=== PATIENT | male | born 1985 | race Caucasian/White ===

== ENCOUNTER 2016-09-02 13:09 | Emergency (ER) | payer MEDICARE, OTHER ==
--- NOTE | 2016-09-02 13:26 | ED Physician Documentation ---
General Adult - HISTORIAN Historian: patient - HPI Chief Complaint: General Adult Timing: still present Further Comments: yes (Patient has had a suprapubic catheter placed several years ago. Had catheter changed last week. Since that time has been having some difficutlies where it does not seem to be drainaing as well. Seems to be getting plugged up at times. Has a lot of sediment in the tubing. Has felt that his blladder has been distened and has been urinating through his penis at times. Feels like he might have a UTI at this time. Has had some fever, no chills noted.) - ROS CONST: fever, chills GI/: abdominal pain - PAST HX Past History: other (cervical fracture with spinal cord injury) Other History: none Surgeries/Procedures: other (Cervical fusion, suprapubic cath plaement) Allergies/Adverse Reactions: Allergies Allergy/AdvReac Type Severity Reaction Status Date / Time No Known Allergies Allergy Verified 09/02/16 13:24 Home Medications: Ambulatory Orders Medication Instructions Recorded Ciprofloxacin HCl [Cipro] 250 mg PO BID #10 tablet 09/02/16 Metformin HCl [Glucophage] 500 mg PO [id number] 09/02/16 Pantoprazole Sodium [Protonix] 40 mg PO 0700 09/02/16 - SOCIAL HX Smoking History: greater than 1 pack/day Alcohol Use: none Drug Use: none - FAMILY HX Family History: Yes (grandmother with DM) - VITAL SIGNS Vital Signs: Vital Signs Temp Pulse Resp BP Pulse Ox 124/76 12/13/15 23:19 - REVIEWED ASSESSMENTS Nursing Assessment Reviewed: Yes Vitals Reviewed: Yes Progress - Progress Progress: Patient had suprapubic cath and bag changed. 18French cath was placed and 8cc water use to inflate bulb. Good return to urine, slightly blood at first. General Adult Physical Exam - PHYSICAL EXAM GENERAL APPEARANCE: no distress NECK: normal inspection RESPIRATORY: no resp distress, chest non-tender, breath sounds normal. No: wheezes, rales, rhonchi CVS: reg rate & rhythm, heart sounds normal ABDOMEN: soft, no organomegaly, normal bowel sounds, no distension, tenderness ( mild suprapubic tenderness), other (some purluent drainage from the suprapubi site) BACK: normal inspection SKIN: warm/dry, normal color NEURO: oriented X3, CN's nml as tested, cognition normal Discharge Clincal Impression: UTI (urinary tract infection) Qualifiers: Urinary tract infection type: acute cystitis Hematuria presence: without hematuria Qualified Code(s): N30.00 - Acute cystitis without hematuria Prescriptions: Ciprofloxacin HCl [Cipro] 250 mg PO BID #10 tablet Referrals: Gino Matute MD [Primary Care Provider] - 2 Days Additional Instructions: Drink a lot of fluids, take cipro as directed twice a day for 5 days. Watch for any developed of fever, chills. If you have any further problems to return tot he clinic or to the ED. Home Medications: Ambulatory Orders Ciprofloxacin HCl [Cipro] 250 mg PO BID #10 tablet 09/02/16 Metformin HCl [Glucophage] 500 mg PO [id number] 09/02/16 Pantoprazole Sodium [Protonix] 40 mg PO 0700 09/02/16 Condition: Stable Disposition: 01 HOME, SELF-CARE Decision to Admit: NO Date of Decison to Admit: 09/02/16 Decision Time: 14:17
[2016-09-02 13:33] VITALS: BP 98/55
[2016-09-02] MEDS ORDERED: KETOROLAC TROMETHAMINE 60 MG/2 ML VIAL IM ONE (14:12)
[2016-09-03 05:30] LABS: APPEARANCE,URINE CLOUDY (CLEAR); COLOR,URINE RED (YELLOW); OCCULT BLOOD,URINE 3+ (NEGATIVE)
== END 2016-09-02 14:35 | disposition home or self-care (01) ==
LOC: ED 13:09
DX: N30.00 Acute cystitis without hematuria (principal)
CPT/HCPCS: 51702; 81002; 87086; J1885; 87186; 99283

== ENCOUNTER 2016-11-25 16:05 | Emergency (ER) | payer MEDICARE, OTHER ==
[2016-11-25] MEDS ORDERED: PHENAZOPYRIDINE HCL 200 MG TABLET PO ONE (16:53)
--- NOTE | 2016-11-25 17:19 | ED Physician Documentation ---
Male Genitourinary Problems - HISTORIAN Historian: patient - HPI Chief Complaint: Male Urogenital Problems Onset: days ago Duration: continues in ED Severity: moderate Further Comments: yes (31 year old male patient presents with supra pubic catheter leaking, bladder spasms and dysuria. Patient reports problems since his supra pubic was changed on .) - Associated Symptoms Testicular Pain: none Testicular Swelling: none Flank Pain: none Abdominal Pain: none - Sexual History Sexual History: non-contributory - ROS CONST: none GI/: denies: nausea, vomiting MS/SKIN/LYMPH: none CVS/RESP: none EYES/ENT: none - PAST HX Past History: other (supra pubic catheter; incomplete quad - C6 fracture, GERD) Allergies/Adverse Reactions: Allergies Allergy/AdvReac Type Severity Reaction Status Date / Time No Known Allergies Allergy Verified 09/02/16 13:24 Home Medications: Ambulatory Orders Medication Instructions Recorded Ciprofloxacin HCl [Cipro] 250 mg PO BID #10 tablet 09/02/16 Metformin HCl [Glucophage] 500 mg PO [id number] 09/02/16 Pantoprazole Sodium [Protonix] 40 mg PO 0700 09/02/16 - SOCIAL HX Smoking History: non-smoker - FAMILY HX Family History: denies: none - VITAL SIGNS Vital Signs: Vital Signs Temp Pulse Resp BP Pulse Ox 98.7 F 65 20 91/51 94 11/25/16 16:20 11/25/16 17:38 11/25/16 17:38 11/25/16 17:38 11/25/16 17:38 - REVIEWED ASSESSMENTS Nursing Assessment Reviewed: Yes Vitals Reviewed: Yes Progress - Progress Progress: only 3ml of water in supra pubic catheter balloon. Removed, new catheter placed and UA obtained. Reviewed old charts - history of hematuria. Patient complains of bladder spasms - pyridium po given. Cipro started in ER. ED Results Lab/Radiology - Orders Orders: ED Orders Category Date Time Status UA W/MICRO IF INDICATED Stat Lab 11/25/16 16:52 Ordered Ciprofloxacin HCl [Cipro] Med 11/25/16 17:27 Discontinued 500 mg PO NOW ONE Phenazopyridine HCl [Pyridium] Med 11/25/16 16:53 Discontinued 200 mg PO NOW ONE Male Genitourinary Problems - EXAM General Appearance: mild distress Abdomen: no organomegaly, tenderness (OVER BLADDER AREA), other (supra pubic catheter) EENT: eye inspection normal, ROOPA Respiratory: no resp distress, chest non-tender, breath sounds normal CVS: reg rate & rhythm, heart sounds normal, equal pulses, no murmur, no gallop , PMI nml, no JVD, no friction rub, 24 Neuro/Psych: oriented X3, sensation nml (Incomplete quad; wheelchair bound), mood/affect nml Skin: normal color, warm/dry, NR, INT, PAL, DR Discharge Clincal Impression: UTI (urinary tract infection) Qualifiers: Urinary tract infection type: catheter-associated UTI Indwelling urinary catheter type: unspecified Encounter type: initial encounter Qualified Code(s): T83.511A - Infection and inflammatory reaction due to indwelling urethral catheter, initial encounter; N39.0 - Urinary tract infection, site not specified Suprapubic catheter dysfunction Qualifiers: Encounter type: initial encounter Qualified Code(s): T83.010A - Breakdown ( mechanical) of cystostomy catheter, initial encounter Referrals: Gino Matute MD [Primary Care Provider] - 2 Days Home Medications: Ambulatory Orders Ciprofloxacin HCl [Cipro] 250 mg PO BID #10 tablet 09/02/16 Metformin HCl [Glucophage] 500 mg PO [id number] 09/02/16 Pantoprazole Sodium [Protonix] 40 mg PO 0700 09/02/16 Condition: Stable Disposition: 01 HOME, SELF-CARE Decision to Admit: NO Decision Time: 17:19
[2016-11-25] MEDS ORDERED: CIPROFLOXACIN HCL 500 MG TABLET PO ONE (17:27)
[2016-11-25 17:40] VITALS: BP 91/51
== END 2016-11-25 17:38 | disposition home or self-care (01) ==
LOC: ED 16:05 → EDSTATUS 16:06 → ED 17:38
DX: T83.010A Breakdown (mechanical) of cystostomy catheter, initial encounter (principal); N39.0 Urinary tract infection, site not specified; X58.XXXA Exposure to other specified factors, initial encounter; Y93.9 Activity, unspecified; Y99.9 Unspecified external cause status

== ENCOUNTER 2017-02-19 14:28 | Emergency (ER) | payer MEDICARE, OTHER ==
[2017-02-19] MEDS ORDERED: PHENAZOPYRIDINE HCL 200 MG TABLET PO ONE (15:11)
[2017-02-19] MEDS ORDERED: fentaNYL CITRATE/PF 100 MCG/ 2ML AMP IVP ONE (15:28)
[2017-02-19 15:47] LABS: BASOPHILS % 1.1 (0.0-1.5); EOSINOPHILS % 2.7 % (0.0-6.8); MEAN CORPUSCULAR HEMOGLOBIN 31.1 pg (28.0-34.0); MEAN CORPUSCULAR VOLUME 90.2 fl (80.0-100.0); MONOCYTES % 5.8 % (0.0-11.0); NEUTROPHILS # 4.7 # k/uL (1.4-7.7)
--- NOTE | 2017-02-19 15:53 | ED Physician Documentation ---
Male Genitourinary Problems - HISTORIAN Historian: patient - HPI Stated Complaint: bladder spasms,dysuria Chief Complaint: Male Genitourinary Problems Onset: days ago (Sunday) Duration: continues in ED Further Comments: yes (31 year old male presents with complaints of supra pubic catheter discomfort and "blood in tubing". Patient reports having catheter changed in his primary care doctor's office on Sunday, states he has been uncomfortable ever since with multiple episodes of bloody urine. Old records reviewed, patient seen in 11/2016 with suprapubic infection after catheter change.) - Associated Symptoms Problems Urinating: blood in urine, discomfort w/ urination, pain w/ urination Testicular Pain: none Testicular Swelling: none Abdominal Pain: none - Sexual History Sexual History: non-contributory - ROS CONST: none GI/: problems urinating (supra pubic catheter) MS/SKIN/LYMPH: none CVS/RESP: none EYES/ENT: none - PAST HX Past History: other (Supra pubic catheter, hx trach, Incomplete Quad 2011 - C6 fracture, GERD) Cardiac Disease: none Allergies/Adverse Reactions: Allergies Allergy/AdvReac Type Severity Reaction Status Date / Time No Known Allergies Allergy Verified 02/19/17 14:58 Home Medications: Ambulatory Orders Medication Instructions Recorded Metformin HCl [Glucophage] 500 mg PO [id number] 09/02/16 Pantoprazole Sodium [Protonix] 40 mg PO 0700 09/02/16 - SOCIAL HX Smoking History: cigarettes - FAMILY HX Family History: denies: none - VITAL SIGNS Vital Signs: Vital Signs Temp Pulse Resp BP Pulse Ox 98.2 F 83 16 93/45 95 02/19/17 14:59 02/19/17 14:59 02/19/17 14:59 02/19/17 14:59 02/19/17 14:59 - REVIEWED ASSESSMENTS Nursing Assessment Reviewed: Yes Vitals Reviewed: Yes Progress - Progress Progress: RN replaced supra pubic catheter, patient now with beau hematuria. Irrigated with 100cc; multiple clots passed through penis with beau hematuria. Patient c/o pain, IV established and fentanyl IV given. Irrigation comes out penis, patient states it feels like the catheter is in his penis. Repositioned and re-irrigated with 50cc. Draining out penis. Continued beau hematuria. Fentanyl IV given for pain. Recommended evaluation by urologist. Call to [facility], patient accepted by Dr Ashraf - will evaluate in ER. Catheter now draining, pink urine. Patient now reports in 2012, urethra damage with changing of supra pubic catheter by Home health nurse. ED Results Lab/Radiology - Orders Orders: ED Orders Category Date Time Status Bladder Irrigation .PRN Care 02/19/17 15:11 Active Remove IV/Saline Lock 1T Care 02/19/17 15:28 Active CBC/PLATELET/DIFF Stat Lab 02/19/17 15:40 Received CMP Stat Lab 02/19/17 15:40 Received PTT Stat Lab 02/19/17 15:40 Received UA W/MICRO IF INDICATED Stat Lab 02/19/17 15:05 Ordered Phenazopyridine HCl [Pyridium] Med 02/19/17 15:11 Discontinued 200 mg PO NOW ONE fentaNYL CITRATE/PF [Duragesic] Med 02/19/17 15:28 Discontinued 50 mcg IVP NOW ONE Male Genitourinary Problems - EXAM General Appearance: moderate distress Abdomen: non-tender, no organomegaly, tenderness (supra pubic area), other ( indwelling supra pubic catheter with white foul drainage in hall tubing) Genitals: nml inspection, testicles nml palp., circumcised. No: testicular tenderness, epididymal tenderness, scrotal swelling, hernia mass Respiratory: no resp distress, chest non-tender, breath sounds normal CVS: reg rate & rhythm, heart sounds normal, equal pulses, no murmur, no gallop , PMI nml, no JVD, no friction rub, 24 Extremities: normal range of motion, non-tender, normal inspection, no pedal edema, no calf tenderness, normal capillary refill, pelvis stable Neuro/Psych: oriented X3, CN's nml as tested, motor nml, sensation nml, mood/ affect nml Skin: normal color, warm/dry, NR, INT, PAL, DR Discharge Clincal Impression: Gross hematuria Suprapubic catheter dysfunction Qualifiers: Encounter type: initial encounter Qualified Code(s): T83.010A - Breakdown ( mechanical) of cystostomy catheter, initial encounter Referrals: Gino Matute MD [Primary Care Provider] - 2 Days Home Medications: Ambulatory Orders Metformin HCl [Glucophage] 500 mg PO [id number] 09/02/16 Pantoprazole Sodium [Protonix] 40 mg PO 0700 09/02/16 Condition: Stable Disposition: 02 XFER SHT-TRM HOSP Decision to Admit: NO Decision Time: 16:02
[2017-02-19 16:03] LABS: eGFR (African) > 60; eGFR (Non-African) > 60
[2017-02-19 16:34] VITALS: BP 96/43
== END 2017-02-19 16:20 | disposition short-term general hospital (02) ==
LOC: ED 14:28
DX: R31.0 Gross hematuria (principal); T83.010A Breakdown (mechanical) of cystostomy catheter, initial encounter; X58.XXXA Exposure to other specified factors, initial encounter; Y93.9 Activity, unspecified; Y99.9 Unspecified external cause status
CPT/HCPCS: 80053; 85025; 85730; J3010; 96374; 99284; S1016

== ENCOUNTER 2017-04-19 15:32 | Emergency (ER) | payer MEDICARE, OTHER ==
--- NOTE | 2017-04-19 15:46 | ED Physician Documentation ---
General Adult - HISTORIAN Historian: patient - VITAL SIGNS Vital Signs: Vital Signs Temp Pulse Resp BP Pulse Ox 96/43 02/19/17 16:20 <Malena Cruz - Last Filed: 04/19/17 16:00> - HPI Stated Complaint: leaking catheter Chief Complaint: General Adult Additional Information: suprapubic catheter, indwelling leaking Timing: still present Severity: moderate Modifying Factors: chronic indwelling catheter from [place] Context: dove into snow and sustained neck fx Further Comments: no - ROS CONST: fever (mild) EYES/ENT: none CVS/RESP: none GI/: abdominal pain (bladder pain) MS/SKIN/LYMPH: none NEURO/PSYCH: denies: headache, fainting, dizziness, tingling - PAST HX Past History: other (cervical fracture, gerd, dm) Other History: none Surgeries/Procedures: other (suprapubic catheter placement) Immunizations: referred to PCP - SOCIAL HX Smoking History: cigarettes Alcohol Use: none Drug Use: none - FAMILY HX Family History: No - VITAL SIGNS Vital Signs: Vital Signs Temp Pulse Resp BP Pulse Ox 99.5 F 79 20 74/33 91 L 04/19/17 15:44 04/19/17 15:44 04/19/17 15:44 04/19/17 15:44 04/19/17 15:44 - REVIEWED ASSESSMENTS Nursing Assessment Reviewed: Yes Vitals Reviewed: Yes <Ananda Martinez - Last Filed: 04/19/17 18:24> - PAST HX Allergies/Adverse Reactions: Allergies Allergy/AdvReac Type Severity Reaction Status Date / Time No Known Allergies Allergy Verified 04/19/17 15:56 Home Medications: Ambulatory Orders Medication Instructions Recorded Metformin HCl [Glucophage] 500 mg PO [id number] 09/02/16 Pantoprazole Sodium [Protonix] 40 mg PO 0700 09/02/16 Progress - Results/Orders Results/Orders: cbc, cmp, ua ordered - Progress Progress: pt. stable entire time in er, given 1 liter ns, 30 mg toradol ivp and vicodin 10 /325 mg p.o. x 1 in er <Ananda Martinez - Last Filed: 04/19/17 18:24> Critical Care Note - Critical Care Note Total Time (mins): 0 <Ananda Martinez - Last Filed: 04/19/17 18:24> ED Results Lab/Radiology - Lab Results Lab Results: Lab Results 04/19/17 04/19/17 04/19/17 16:30 16:30 16:01 WBC 7.30 K/ul K/ul (4.00-12.00) RBC 5.29 M/ul H M/ul (3.90-5.20) Hgb 16.2 g/dL g/dL (12.0-18.0) Hct 47.8 % % (37.0-53.0) MCV 90.5 fl fl (80.0-100.0) MCH 30.6 pg pg (28.0-34.0) MCHC 33.8 g/dL g/dL (30.0-36.0) RDW 14.7 % H % (11.3-14.3) Plt Count 188 K/mm3 K/mm3 (130-400) Neut % (Auto) 51.5 % % (39.0-79.0) Lymph % (Auto) 38.1 % % (16.0-50.0) Carter % (Auto) 3.7 % % (0.0-11.0) Eos % (Auto) 2.4 % % (0.0-6.8) Baso % (Auto) 0.7 (0.0-1.5) Neut # (Auto) 3.8 # k/uL # k/uL (1.4-7.7) Lymph # (Auto) 2.8 # k/uL # k/uL (0.6-4.0) Carter # (Auto) 0.3 # k/uL # k/uL (0.0-0.9) Eos # (Auto) 0.2 # k/uL # k/uL (0.0-0.6) Baso # (Auto) 0.0 # k/uL # k/uL (0.0-0.5) Reactive Lymphs % 3.7 % % (0.0-5.0) Reactive Lymphs # 0.3 # k/uL # k/uL (0.0-0.8) Sodium 136 mmol/L L mmol/L (137-145) Potassium 4.0 mmol/L mmol/L (3.5-5.1) Chloride 104 mmol/L mmol/L (98-107) Carbon Dioxide 24 mmol/L mmol/L (22-30) BUN 17 mg/dL mg/dL (9-20) Creatinine 0.70 mg/dL mg/dL (0.66-1.25) Estimated Creat Clear 163 Est GFR ( Amer) > 60 (60 - ) Est GFR (Non-Af Amer) > 60 (60 - ) Glucose 89 mg/dL mg/dL (74-106) Calcium 8.7 mg/dL mg/dL (8.4-10.2) Total Bilirubin 0.5 mg/dL mg/dL (0.2-1.3) AST 24 U/L U/L (15-46) ALT 31 U/L U/L (13-69) Alkaline Phosphatase 74 U/L U/L (38-126) Total Protein 7.2 g/dL g/dL (6.3-8.2) Albumin 3.8 g/dL g/dL (3.5-5.0) Urine Color Yellow (YELLOW) Urine Appearance Cloudy (CLEAR) Urine pH 6.5 (5.0 - 8.0) Ur Specific [place] 1.025 (1.010-1.030) Urine Protein 2+ mg/dL H mg/dL (NEGATIVE) Urine Ketones Negative mg/dL mg/dL (NEGATIVE) Urine Occult Blood 2+ H (NEGATIVE) Urine Nitrite Positive H (NEGATIVE) Urine Bilirubin 1+ H (NEGATIVE) Urine Urobilinogen 0.2 Eu Eu (0.2-1.0) Ur Leukocyte Esterase 1+ H (NEGATIVE) Urine Glucose Negative mg/dL mg/dL (NEGATIVE) - Radiology Radiology Impressions: none ordered - Orders Orders: ED Orders Category Date Time Status German [Urinary catheterization] 1T Care 04/19/17 17:[address] IV Lock 1T Care 04/19/17 16:00 Active BLOOD CULTURE Urgent Lab 04/19/17 Ordered CBC/PLATELET/DIFF Routine Lab 04/19/17 16:30 Completed CMP [CMP] Routine Lab 04/19/17 16:30 Completed UA W/MICRO IF INDICATED Routine Lab 04/19/17 16:01 Completed URINE CULTURE Routine Lab 04/19/17 16:01 Received 0.9 % Sodium Chloride [Normal Saline] 1,000 ml Med 04/19/17 16:01 Discontinued IV Q1H HYDROcodone /APAP 10/325 [[place] 10/325] Med 04/19/17 17:25 Discontinued 1 each PO NOW ONE Ketorolac Tromethamine [Toradol] Med 04/19/17 16:35 Discontinued 30 mg IVP NOW ONE Sulfamethoxazole/Trimethoprim [Bactrim Ds] Med 04/19/17 17:53 Discontinued 1 each PO .STK-MED ONE Sulfamethoxazole/Trimethoprim [Bactrim Ds] Med 04/19/17 17:52 Once 1 each PO NOW ONE <Ananda Martinez - Last Filed: 04/19/17 18:24> General Adult Physical Exam - PHYSICAL EXAM GENERAL APPEARANCE: mild distress EENT: eye inspection normal, ENT inspection normal, pharynx normal, no signs of dehydration, ROOPA, no nystagmus, TM's nml NECK: normal inspection, thyroid normal, supple RESPIRATORY: no resp distress, chest non-tender, breath sounds normal CVS: reg rate & rhythm, heart sounds normal, equal pulses, no murmur, no gallop , PMI nml, no JVD ABDOMEN: soft, normal bowel sounds, tenderness (suprapubic area) BACK: normal inspection, no CVA tenderness SKIN: warm/dry, normal color EXTREMITIES: non-tender, normal range of motion, no evidence of injury, no edema NEURO: oriented X3, CN's nml as tested, motor nml, sensation nml, mood/affect nml, cognition normal <Ananda Martinez S - Last Filed: 04/19/17 18:24> Discharge <Malena Cruz - Last Filed: 04/19/17 16:00> Comments: Discharged home in stable condition with script for Bactrim DS 1 p.o. bid x 10 days Decision to Admit: NO Decision Time: 06:00 <Ananda Martinez S - Last Filed: 04/19/17 18:24> Clincal Impression: Urinary tract infection Qualifiers: Urinary tract infection type: catheter-associated UTI Indwelling urinary catheter type: cystostomy catheter Encounter type: initial encounter Qualified Code(s): T83.510A - Infection and inflammatory reaction due to cystostomy catheter, initial encounter Suprapubic catheter dysfunction Qualifiers: Encounter type: initial encounter Qualified Code(s): T83.010A - Breakdown ( mechanical) of cystostomy catheter, initial encounter Referrals: Gino Matute MD [Primary Care Provider] - 2 Days Condition: Stable Disposition: 01 HOME, SELF-CARE
[2017-04-19] MEDS ORDERED: 0.9 % SODIUM CHLORIDE 1,000 ML IV ONE (16:01)
[2017-04-19 16:33] LABS: BASOPHILS % 0.7 (0.0-1.5); EOSINOPHILS % 2.4 % (0.0-6.8); MEAN CORPUSCULAR HEMOGLOBIN 30.6 pg (28.0-34.0); MEAN CORPUSCULAR VOLUME 90.5 fl (80.0-100.0); MONOCYTES % 3.7 % (0.0-11.0); NEUTROPHILS # 3.8 # k/uL (1.4-7.7)
[2017-04-19] MEDS ORDERED: KETOROLAC TROMETHAMINE 30 MG/1ML VIAL IVP ONE (16:35)
[2017-04-19 16:51] LABS: eGFR (African) > 60; eGFR (Non-African) > 60
[2017-04-19 17:10] LABS: APPEARANCE,URINE CLOUDY (CLEAR); COLOR,URINE YELLOW (YELLOW); OCCULT BLOOD,URINE 2+ (NEGATIVE); PH URINE 6.5 (5.0 - 8.0); UROBILINOGEN URINE 0.2 Eu (0.2-1.0)
[2017-04-19] MEDS ORDERED: HYDROcodone /APAP 10/325 1 EACH TABLET PO ONE (17:25)
[2017-04-19] MEDS ORDERED: SULFAMETHOXAZOLE/TRIMETHOPRIM 1 EACH TABLET PO ONE ×2 (17:52→17:53)
[2017-04-19 18:42] VITALS: BP 94/51
== END 2017-04-19 18:00 | disposition home or self-care (01) ==
LOC: ED 15:32
DX: T83.510A Infection and inflammatory reaction due to cystostomy catheter, initial encounter (principal); T83.010A Breakdown (mechanical) of cystostomy catheter, initial encounter; X58.XXXA Exposure to other specified factors, initial encounter; Y93.9 Activity, unspecified; Y99.9 Unspecified external cause status
CPT/HCPCS: 51702; 80053; 81002; 85025; 87040; 87086; 87186; A9270; J1885; J7030; 96361; 96374; 99283; S1016

== ENCOUNTER 2017-06-04 15:25 | Outpatient (CLI) | payer MEDICARE, OTHER ==
[2017-06-04 15:54] LABS: BASOPHILS % 0.5 (0.0-1.5); MEAN CORPUSCULAR HEMOGLOBIN 31.2 pg (28.0-34.0); MEAN CORPUSCULAR VOLUME 93.5 fl (80.0-100.0); MONOCYTES % 4.3 % (0.0-11.0)
--- NOTE | 2017-06-04 17:19 | Diagnostic Imaging Report ---
[facility] [id number] [facility].[address] [address] Report Submission Date: Jun 04, 2017 4:27:15 PM CARTON CATCHER Patient Study Name: KEILA ARMENTA Date: Jun 04, 2017 3:53:31 PM CARTON CATCHER Modality Type: CR Gender: M Description: CHEST : 81 Institution: [facility] Physician: SIA SALAZAR - OP Examination: PA and lateral chest. History: Evaluate lung barnard. Comparison exam: None provided Findings: PA lateral chest demonstrate a normal cardiac and mediastinal silhouette. No focal infiltrate. No blunting of the costophrenic margins. Mild indistinctness involving the right cardiac margin due to pectus excavatum identified and lateral view. Few scattered granuloma. Osseous structures are otherwise appropriate for age. Impression: No acute pulmonary process. No effusion. Electronically signed on Jun 04, 2017 4:27:15 PM CARTON CATCHER by: Jay STEVENS
== END 2017-06-04 15:26 ==
LOC: LAB 15:25
PROVIDERS: ATTEND Family Medicine
DX: J69.0 Pneumonitis due to inhalation of food and vomit (principal)
CPT/HCPCS: 36415; 71020; 85025

== ENCOUNTER 2017-08-28 11:04 | Outpatient (CLI) | payer MEDICARE, OTHER ==
--- NOTE | 2017-08-29 11:01 | HISTORY AND PHYSICAL REPORT ---
REFERRING PHYSICIAN: Dr. Gino Matute Dear Dr. Matute: HISTORY OF PRESENT ILLNESS: I had the opportunity of seeing Dao Donald today as an outpatient in clinic at [facility]. This is a very nice 32-year-old white gentleman with a history of cervicalgia/neck pain. 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 Pearson for partial paralysis. He had revision of that surgery done with posterior instrumentation in 2012. He has been managed by Dr. Kenyon in the Physical Medicine and Rehabilitation Department at the [facility] and at his last appointment he was told that Dr. Kenyon was no longer practicing in that department and had potentially left the [place], which prompted his visit with me today. He complains of cervicalgia/neck pain and inability to turn his head. He has partial use of the upper extremities and does get sensation in his lower extremities. He says that recently his sensation has been waxing and waning on the right side. He takes gabapentin, Baclofen, Xanax, and oxycodone extended release and immediate release. His total 24-hour dosing is 80 mg a day of oxycodone. He has no available imaging to review today but complains of neck pain radiating into both shoulders. He denies arm pain. He has weakness as noted above. PAST MEDICAL HISTORY: 1. History of partial quadriplegia status post a cervical fracture in 2010. 2. Bilateral spontaneous pneumothorax. 3. Multiple decubitus ulcers. 4. Anxiety. 5. Depression. 6. Chronic pain with opiate dependence. 7. Pneumonia. PAST SURGICAL HISTORY: 1. C6-C7 ACDF [place] [address] Pearson. 2. Revision with posterior cervical decompression and fusion with hardware also by Dr. Pearson in 2012. 3. Tracheostomy. 4. G-tube. 5. Suprapubic catheter placement. CURRENT DAILY MEDICATIONS: 1. Baclofen 160 mg total daily. 2. Gabapentin 600 mg at noon and 1200 mg at bedtime. 3. Metformin 500 mg daily. 4. Pantoprazole 40 mg daily. 5. Cefuroxime 250 mg b.i.d. 6. Bactrim DS 80/160 mg 1 p.o. b.i.d. 7. OxyContin 10 mg 1 p.o. b.i.d. 8. DuoNeb b.i.d. p.r.n. 9. Cipro 500 mg b.i.d. 10. Alprazolam 1 mg daily. 11. Flomax 0.4 mg daily. 12. Oxycodone 10 mg 6 per day. ALLERGIES: He has no known drug allergies. SOCIAL HISTORY: He is not currently . He has 1 child. He lives at home alone. He is disabled due to his quadriplegia. He is a current iypg-e-mjip-per-day smoker. Denies alcohol or recreational drug use. FAMILY HISTORY: Grandmother with cancer. REVIEW OF SYSTEMS: No complaints in the last month or so. Pain is worse with any activity. Nothing seems to improve his pain. PHYSICAL EXAMINATION: General: This is a well-nourished, well-developed white male in no apparent distress. He is wheelchair bound. Vital Signs: BP: 123/67, P: 88, R: 17, T: 98 degrees, oxygen saturation is 95% on room air. Head: He has reproducible pain with rotation of his head. Neck: He has limited rotation and extension of the cervical spine. Extremities: Patient has bilateral upper and lower extremity weakness. ASSESSMENT: 1. Cervical spondylosis. 2. History of posterior instrumentation. 3. History of partial quadriplegia. 4. Opiate tolerance. 5. Chronic pain disorder. PLAN: At this point, I have explained to Mr. Donald that many insurance companies are no longer providing coverage for oxycodone medication and that I think his neck pain is probably spondylolytic and would be treatable. I would recommend getting a new CAT scan of his cervical spine prior to any treatment, and I would want an anesthesia provider if sedation was deemed necessary. I furthermore stressed that I think he should have a regular routine with the Physical Medicine and Rehabilitation (PM&R) or Physiatry Department because of special needs involving decubitus ulcers or possible urinary tract infections resulting from his quadriplegia. I would recommend changing his medication to an equivalent dose of Xtampza ER which is a 36 mg twice a day equivalent dose to 80 mg of oxycodone and that I would be glad to follow him up. Unfortunately , Mr. Donald is not receptive to my recommendations. He accused me today of saying he was distributing drugs to children, which was not part of the discussion. If he changes his opinion, I would be willing to follow him up and treat him in the future. Dr. Matute, thank you very much for allowing me to take part in the care of this nice gentleman. I am sorry he was not more pleased with my recommendations. cc: Dr. Gino STEVENS
== END 2017-08-28 11:05 ==
LOC: OUT 11:04
PROVIDERS: ATTEND Anesthesiology Pain Medicine
DX: M47.812 Spondylosis without myelopathy or radiculopathy, cervical region (principal); G82.50 Quadriplegia, unspecified; F11.20 Opioid dependence, uncomplicated; G89.4 Chronic pain syndrome
CPT/HCPCS: 99213; G0463

== ENCOUNTER 2017-10-16 16:17 | Outpatient (CLI) | payer MEDICARE, OTHER | END 2017-10-16 16:18 | LOC: LABRHC 16:17 | PROVIDERS: ATTEND Physician Assistant | DX: R30.0 Dysuria (principal) | CPT/HCPCS: 87086 ==

== ENCOUNTER 2018-05-29 16:25 | Outpatient (CLI) | payer MEDICARE, OTHER | END 2018-05-29 16:26 | LOC: LABRHC 16:25 | PROVIDERS: ATTEND Family Medicine | DX: N39.0 Urinary tract infection, site not specified (principal) | CPT/HCPCS: 87086; 87186 ==

== ENCOUNTER 2019-03-25 14:14 | Outpatient (CLI) | payer MEDICARE, OTHER | END 2019-03-25 14:16 | LOC: LABRHC 14:14 | PROVIDERS: ATTEND Family Medicine | DX: N30.90 Cystitis, unspecified without hematuria (principal) | CPT/HCPCS: 87086; 87186 ==